=== PATIENT | female | born 1935 ===

== ENCOUNTER 2024-03-18 20:24 | Inpatient (IN) | payer MEDICARE ==
[~2024-03-18] VITALS: Ht 152.4 cm; Wt 50.0 kg
[2024-03-18] MEDS ORDERED: AMITRIPTYLINE H50 M1 PO (20:57)
[2024-03-18] MEDS ORDERED: LASIX 20MG TABL20 MG PO (20:57)
[2024-03-18] MEDS ORDERED: SYNTHROID0.075 MG/T PO (20:58)
[2024-03-18] MEDS ORDERED: XANAX .25M0.25 MG/TA PO (20:58)
[2024-03-18] MEDS ORDERED: LOPRESSOR 550 MG/TAB PO (20:58)
[2024-03-18] MEDS ORDERED: NS 1,000 ML IV SCH (21:00)
[2024-03-18] MEDS ORDERED: Ondansetron 4 MG/2 ML VIAL IV PRN (21:00)
[2024-03-18] MEDS ORDERED: Pantoprazole 40 MG in NS 10 ML IV SCH (21:00)
--- NOTE | 2024-03-18 21:15 | NUR ---
PATIENT ARRIVED TO ROOM 346 VIA EMS STRETCHER, TRANSFERRED FROM [facility]. PRESENTLY DENIES PAIN IN HER ABDOMEN BUT IS REPORTING A SLIGHT HEADACHE AND PAIN IN BOTH SHOULDERS SHE HAS RECENTLY STARTED USING A WALKER AND STATES THISIS WHAT HAS CAUSED HER SHOULDERS TO START HURTING. SHE IS VERY ANXIOUS AND DOES NOT WANT TO ANSWER MANY OF THE INTAKE QUESTIONS STATING THAT THE QUESTIONING IS UPSETTING HER NERVES. SHE IS ALERT AND ORIENTED BUT CONVERSATIONALLY CONFUSED. EDUCATED DISPATCH ASSOCIATE LIGHT USE AND ENSURED CALL LIGHT IS WITHIN REACH. BED IS LOCKED AND IN LOW POSITION WITH BED ALARM ON.
[2024-03-18] MEDS ORDERED: CYMBALTA 20MG20 MG PO (21:36)
[2024-03-18] MEDS ORDERED: VITAMIN D31000 I1 PO (21:37)
[2024-03-18] MEDS ORDERED: BAYER BACK & B1 EACH PO (21:39)
[2024-03-18] MEDS ORDERED: MULTI VITAMINS1 TAB PO (21:40)
[2024-03-18] MEDS ORDERED: DICLOFENAC SOD2.5 ML TOP (21:41)
[2024-03-18] MEDS ORDERED: GLUCOSAMINE & C1 CA2 (21:43)
[2024-03-18] MEDS ORDERED: ANTACID500 M1 (21:44)
[2024-03-18] MEDS ORDERED: B-121000 MCG PO ×2 (21:44→22:06)
[2024-03-18] MEDS ORDERED: NEURONTIN100 MG/CAP PO (22:03)
[2024-03-18] MEDS ORDERED: CELEBREX 1100 MG/CAP PO (22:04)
[2024-03-18] MEDS ORDERED: ALPRAZolam 0.25 MG TAB PO PRN (22:15)
[2024-03-18] MEDS ORDERED: Furosemide 40 MG/4 ML VIAL IV SCH (22:30)
[2024-03-19] VITALS (10 sets, daily range): BP systolic 94–139; BP diastolic 58–82; PULSE 70–91; TEMP 97.7–98.4
[2024-03-19 00:48] LABS: CALCIUM 7.9 mg/dL (8.4-10.2); CREATININE, serum 0.63 mg/dL (0.57-1.11); MAGNESIUM 1.7 mg/dL (1.6-2.6)
[2024-03-19] MEDS ORDERED: Potassium Chloride 100 ML IV SCH (01:00)
[2024-03-19] MEDS ORDERED: *Potassium Replacement Protocol MC SCH (01:00)
[2024-03-19 06:50] LABS: BASO # 0.1 K/mm3 (0.0-0.2); BASO % 0.8 % (0.0-2.0); EOS % 16.1 % (0.0-4.0); GRAN # 2.6 K/mm3 (1.4-6.5); GRAN % 41.3 % (42.2-75.2); HEMOGLOBIN 10.1 g/dl (12.5-16.0); LYMPH % 32.3 % (20.0-51.0); MEAN CELL VOLUME 103 fl (80.0-100.0); MEAN CORPUSCULAR HEMOGLOBIN 36 pg (27-31); MEAN CORPUSCULAR HGB CONC 35 g/dl (33.0-37.0); MEAN PLATELET VOLUME 8.9 fl (7.4-10.4); MONO # 0.6 K/mm3 (0.1-0.6); PLATELET COUNT 340 K/mm3 (130-400); RED BLOOD COUNT 2.79 M/mm3 (4.10-5.30); REDCELL DISTRIBUTION WIDTH-CV 15.7 % (11.5-14.5)
[2024-03-19 06:53] LABS: HEMATOCRIT 28.7 % (37.0-47.0)
[2024-03-19 07:12] LABS: ALBUMIN 1.8 g/dL (3.4-4.8); BILIRUBIN,TOTAL 0.2 mg/dL (0.2-1.2); CALCIUM 7.2 mg/dL (8.4-10.2); CREATININE, serum 0.61 mg/dL (0.57-1.11); POTASSIUM 4.1 mEq/L (3.5-4.5); TOTAL PROTEIN 3.8 g/dl (6.2-8.1)
[2024-03-19] MEDS ORDERED: Dextrose (Glucose) 15 GM (4 x 3.75 GM) Chewable TABLET PACK PO PRN (08:00)
[2024-03-19] MEDS ORDERED: D5 1/2 NS 1,000 ML IV SCH (08:00)
[2024-03-19] MEDS ORDERED: Glucagon 1 MG VIAL IM PRN (08:00)
[2024-03-19] MEDS ORDERED: Dextrose 50% Water 25 GM/50 ML SYRINGE IV PRN (08:00)
[2024-03-19] MEDS ORDERED: Gabapentin 100 MG CAP PO SCH (09:00)
--- NOTE | 2024-03-19 09:32 | NUR ---
SHIFT ASSESSMENT COMPLETE. VSS. PATIENT RESTING IN BED AWAKE W/ DAUGHTER AT BEDSIDE. PATIENT REPORT HEADACHE PAIN MEDS GIVEN ORDERED. ALL PO MEDS ON HOLD DUE TO PATIENT BEING NPO AT THIS TIME AND GENERAL SURGERY EVALUATES. PATIENT HAS NO OTHER NEEDS AT THIS TIME. BED ALARM ON AND CALL LIGHT IN REACH
--- NOTE | 2024-03-19 09:37 | NUR ---
aquacultural worker supervisor met with pt and her daughter, Geeat [phone] to discuss discharge planning. Pt reports to be tired and does not want to answer anymore questions. She agreed to let SW discuss with her daughter. Geeta reports pt lives alone in [place]. She sees Dr. Irma Abrams for PCP needs and obtains medications from [facility] with no difficulties. She states pt is usually independent with ADLS and uses a [facility] for DME. She reports they have private duty come in to assist with bathing and light housekeeping. She reports son, Joe [phone] is DPOA-HC and SW urged him to bring a copy in. SW advised PT/OT will work with pt and make a reccomendation. She verbalized understanding. PT/OT pending Discharge Plan: [facility]
[2024-03-19] MEDS ORDERED: oxyCODONE 5 MG TAB PO PRN (12:00)
[2024-03-19] MEDS ORDERED: Morphine 4 MG/ML VIAL IV PRN (12:00)
[2024-03-19] MEDS ORDERED: Acetaminophen 500 MG TAB PO PRN (12:00)
--- NOTE | 2024-03-19 20:46 | NUR ---
PATIENT RESTING IN BED WITH EYES CLOSED. EASILY ROUSED. DENIES PAIN AT THIS TIME. REMAINS STABLE ON ROOM AIR. CALL LIGHT IS WITHIN REACH. BED IS LOCKED AND IN LOW POSITION.
[2024-03-19] MEDS ORDERED: Amitriptyline 50 MG TAB PO SCH (21:00)
[2024-03-20] VITALS (12 sets, daily range): BP systolic 103–139; BP diastolic 65–91; PULSE 54–66; TEMP 96.4–98.1
--- NOTE | 2024-03-20 04:10 | NUR ---
PCT REPORTED PATIENT'S BLOOD GLUCOSE 58. 12.5 MG IV DEXTROSE GIVEN.
[2024-03-20 07:03] LABS: BASO # 0.1 K/mm3 (0.0-0.2); BASO % 0.9 % (0.0-2.0); EOS # 1.3 K/mm3 (0.0-0.7); EOS % 19.5 % (0.0-4.0); GRAN # 2.9 K/mm3 (1.4-6.5); GRAN % 42.5 % (42.2-75.2); HEMOGLOBIN 10.8 g/dl (12.5-16.0); LYMPH # 1.9 K/mm3 (1.2-3.4); MEAN CELL VOLUME 106 fl (80.0-100.0); MEAN CORPUSCULAR HEMOGLOBIN 36 pg (27-31); MEAN CORPUSCULAR HGB CONC 34 g/dl (33.0-37.0); MEAN PLATELET VOLUME 8.8 fl (7.4-10.4); MONO # 0.6 K/mm3 (0.1-0.6); MONO % 8.7 % (1.7-9.3); PLATELET COUNT 349 K/mm3 (130-400); RED BLOOD COUNT 2.97 M/mm3 (4.10-5.30); REDCELL DISTRIBUTION WIDTH-CV 16.4 % (11.5-14.5)
[2024-03-20 07:06] LABS: HEMATOCRIT 31.5 % (37.0-47.0)
[2024-03-20 07:27] LABS: ALBUMIN 1.7 g/dL (3.4-4.8); BILIRUBIN,TOTAL 0.2 mg/dL (0.2-1.2); CALCIUM 6.9 mg/dL (8.4-10.2); CREATININE, serum 0.66 mg/dL (0.57-1.11); POTASSIUM 3.3 mEq/L (3.5-4.5); TOTAL PROTEIN 3.9 g/dl (6.2-8.1)
[2024-03-20] MEDS ORDERED: Potassium Chloride 100 ML IV SCH ×2 (08:00→19:30)
--- NOTE | 2024-03-20 09:29 | NUR ---
AKHIL notes PT/OT reccomend SNF vs Home Health. AKHIL provided Medicare.gov lists of both options to pt and daughter to review as there is an unknown determination of medical process at this time. Daughter reports she is uneasy about pt returning home with their minimal private duty services. She reports that pt has only been able to return home this long due to the son's living close by as pat's and being in/out of the home. Daughter reports interest in [facility] or [facility]. AKHIL provided information on these and IPR for them to discuss. Daughter is unsure if pt can tolerate IPR or SB levels. She states pt will be difficult to convince to go to a correction. AKHIL notes DPOA-HC and living will was placed in chart. Discharge Plan: SNF vs HH, pending medical plan
--- NOTE | 2024-03-20 09:45 | NUR ---
Pt. laying in bed with daughter at bedside. Pt. is Alert and oriented but forgetful. IV fluids infusing to rt. forearm site. Pt. denies pain or other needs, call light within reach.
[2024-03-20] MEDS ORDERED: Ondansetron 4 MG/2 ML VIAL IV PRN (10:15)
[2024-03-20] MEDS ORDERED: LR 1,000 ML IV SCH (11:30)
[2024-03-20] MEDS ORDERED: ALPRAZolam 0.25 MG TAB PO PRN (11:30)
[2024-03-20] MEDS ORDERED: Magnesium Sulfate 2 GM/50 ML IV SOLN IV SCH (12:00)
--- NOTE | 2024-03-20 20:49 | NUR ---
PATIENT RESTING IN BED WATCHING TV. DENIES PAIN BUT STATES SHE FEELS VERY WEAK. CALL LIGHT WITHIN REACH. BED IS LOCKED AND IN LOW POSITION WITH BED ALARM ON.
[2024-03-20] MEDS ORDERED: Amitriptyline 50 MG TAB PO SCH (21:00)
[2024-03-21] VITALS (20 sets, daily range): BP systolic 108–143; BP diastolic 76–95; PULSE 66–87; TEMP 97.4–98.2
--- NOTE | 2024-03-21 04:40 | NUR ---
PATIENT'S BLOOD GLUCOSE WAS 70. CALLED HOSPITALIST OUR HYPOGLYCEMIC PROTOCOL DOES NOT START UNTIL BELOW 70. HOSPITALIST ADVISED TO GIVE PATIENT FULL 25 MG IV DEXTROSE VS THE PROTOCOL ORDER 12.5 MG
[2024-03-21 06:36] LABS: BASO # 0.1 K/mm3 (0.0-0.2); BASO % 0.8 % (0.0-2.0); EOS # 1.7 K/mm3 (0.0-0.7); EOS % 19.7 % (0.0-4.0); GRAN # 4.5 K/mm3 (1.4-6.5); GRAN % 52.6 % (42.2-75.2); HEMOGLOBIN 11.9 g/dl (12.5-16.0); LYMPH # 1.6 K/mm3 (1.2-3.4); LYMPH % 18.3 % (20.0-51.0); MEAN CELL VOLUME 109 fl (80.0-100.0); MEAN CORPUSCULAR HEMOGLOBIN 36 pg (27-31); MEAN CORPUSCULAR HGB CONC 34 g/dl (33.0-37.0); MONO # 0.7 K/mm3 (0.1-0.6); MONO % 8.3 % (1.7-9.3); PLATELET COUNT 397 K/mm3 (130-400); RED BLOOD COUNT 3.27 M/mm3 (4.10-5.30)
[2024-03-21 06:39] LABS: HEMATOCRIT 35.5 % (37.0-47.0)
[2024-03-21 07:04] LABS: ALBUMIN 1.8 g/dL (3.4-4.8); BILIRUBIN,TOTAL 0.3 mg/dL (0.2-1.2); CALCIUM 6.9 mg/dL (8.4-10.2); CREATININE, serum 0.6 mg/dL (0.57-1.11); TOTAL PROTEIN 4.2 g/dl (6.2-8.1)
--- NOTE | 2024-03-21 09:00 | NUR ---
SHIFT ASSESSMENT COMPLETE. VSS. PATIENT UP TO RECLINER, NPO TILL AFTER EGD TODAY. LFT FOREARM IV INFUSING D5/NS @50ML/HR. PATIENT REPORTS PAIN TO THE LEFT HAND, PAIN MEDS GIVEN ORDERED AND REWRAPPED ROCIO WRAP AROUND.PATIENT ALSO REPORTING A SORE THROAT, REPORTED TO HOSPITALIST. PATIENT HAS NO OTHER REQUEST AT THIS TIME. CHAIR ALARM ON AND CALL LIGHT IN REACH. PATIENTS SON AT BEDSIDE.
--- NOTE | 2024-03-21 11:30 | NUR ---
PATIET GLUCOSE 62 , HYPOGLYCEMIA PROTOCAL ADMINISTERED. RECHECK IN GLUCOSE IN 15MIN
--- NOTE | 2024-03-21 11:49 | NUR ---
AKHIL spoke with son in room to discuss discharge planning as per Dr. Wyatt, if EGD determines anything she could discharge within the next day or so. Pt was resting then RN arrived to assist her. SW spoke with son and looked at Medicare.gov list of HH vs SNF. He reports agreeing that SNF would be more suitable. He was agreeable to the options his sister, Geeta provided: [facility] and [facility]. He reports concerns with pt being agreeable. He later approached SW and expressed concerns again if she is of sound mind and if she chooses to go home. SW encouraged him to talk with their family and discuss boundaries and abilities with her about what they can realistically assist with. He reports he will do this and await for his brother to arrive to help discuss. AKHIL advised she is around and available if they need support providing information. AKHIL informed him that if pt goes home and fails, she could go to a prison within 30 days as she met Medicare inpatient criteria. Son verbalized understanding. AKHIL spoke with Melisa at [facility] who reports their DON is reviewing. AKHIL spoke with Gisele at [facility] who will review it this afternoon. Discharge Plan: SNF/SB vs HH
[2024-03-21] MEDS ORDERED: Lidocaine PF 2% (20 MG/ML) 5 ML VIAL ONE (13:01)
[2024-03-21] MEDS ORDERED: fentaNYL 50 MCG/ML 2 ML VIAL ONE (13:02)
--- NOTE | 2024-03-21 14:12 | NUR ---
PATIENT ARRIVED BACK TO FLOOR @ 1350. VSS. PATIENT AWAKE IN BED W/ FAMILY AT BEDSIDE. PATIENT HAS NO NEEDS AT THIS TIME. BED ALARM ON AND CALL LIGHT IN REACH
--- NOTE | 2024-03-21 14:48 | NUR ---
sort line worker spoke with Gisele at [facility] who reports they will continue to follow, but might determine she is more appropriate for a usp.
--- NOTE | 2024-03-21 17:22 | NUR ---
PATIENT GLUCOSE 61, GAVE PATIENT APPLE JUICE AND ADMINISTER HYPOGLYCEMIC PROTOCAL. RETAKE GLUCOSE IN 15 MIN.
--- NOTE | 2024-03-21 17:30 | NUR ---
RECHECK OF GLUCOSE 96. NO ACTION NEEDED. PATIENT NPO STATUS
--- NOTE | 2024-03-21 18:08 | NUR ---
RECHECK OF GLUCOSE 85. NO ACTION NEEDED
--- NOTE | 2024-03-21 18:27 | NUR ---
ARISA CATHETER REMOVED 9CC IN BALLOON AND 50ML OF URINE OUT.PATIENT TOLERATED WELL. EXPLAINED TO PATIENT MULTIPLE TIMES THAT SHE WILL NEED TO CALL IF SHE NEEDS TO VOID OR HAVE A BM. PATIENT EXPRESSED UNDERSTANDING BUT FEEL VERY ANXIOUS ABOUT GETTING UP OUT OF BED DUE TO WEAKNESS AND FEAR OF FALLING. FAMILY AT BEDSIDE AND THEY STATED THEY WILL TALK WITH PATIENT WELL.
--- NOTE | 2024-03-21 19:00 | NUR ---
RECEIVED CHANGE OF SHIFT REPORT FROM DAY SHIFT NURSE.
[2024-03-22] VITALS (12 sets, daily range): BP systolic 111–157; BP diastolic 81–93; PULSE 61–89; TEMP 97.2–97.9
--- NOTE | 2024-03-22 00:02 | NUR ---
Notified by PCT that bedside glucose 68 post Arroyo Juice. 12.5 grams D50 given IV by this nurse. Instructed PCT to recheck bedside glucose in 15 minutes. Report given to primary nurse RICHARD Asencio.
--- NOTE | 2024-03-22 05:45 | NUR ---
INFORMED ONCALL PROVIDER THAT PATIENT HAS NOT VOIDED FOR THIS SHIFT WITH POOR ORAL FLUID INTAKE AND CURRENT IVF RATE AT 50 ML/HR AND CURRENT VS/MEDITECH WITH ORDERS GIVEN TO BLADDER SCAN AND ST CATH IF >500ML X1.
[2024-03-22 06:33] LABS: BASO # 0.1 K/mm3 (0.0-0.2); BASO % 0.8 % (0.0-2.0); EOS # 1.5 K/mm3 (0.0-0.7); EOS % 16.3 % (0.0-4.0); GRAN # 5.2 K/mm3 (1.4-6.5); GRAN % 57.8 % (42.2-75.2); HEMOGLOBIN 12.2 g/dl (12.5-16.0); LYMPH # 1.7 K/mm3 (1.2-3.4); LYMPH % 18.3 % (20.0-51.0); MEAN CELL VOLUME 108 fl (80.0-100.0); MEAN CORPUSCULAR HEMOGLOBIN 37 pg (27-31); MEAN CORPUSCULAR HGB CONC 34 g/dl (33.0-37.0); MONO # 0.6 K/mm3 (0.1-0.6); MONO % 6.6 % (1.7-9.3); PLATELET COUNT 413 K/mm3 (130-400); RED BLOOD COUNT 3.33 M/mm3 (4.10-5.30); REDCELL DISTRIBUTION WIDTH-CV 16.5 % (11.5-14.5)
[2024-03-22 06:36] LABS: HEMATOCRIT 36.1 % (37.0-47.0)
[2024-03-22 06:53] LABS: ALBUMIN 1.9 g/dL (3.4-4.8); BILIRUBIN,TOTAL 0.3 mg/dL (0.2-1.2); CALCIUM 6.9 mg/dL (8.4-10.2); CREATININE, serum 0.56 mg/dL (0.57-1.11); MAGNESIUM 2.1 mg/dL (1.6-2.6); TOTAL PROTEIN 4.5 g/dl (6.2-8.1)
--- NOTE | 2024-03-22 07:29 | NUR ---
RECEIVED CHANGE OF SHIFT REPORT FROM DAY SHIFT NURSEFRANCISCO JAVIER.
--- NOTE | 2024-03-22 08:00 | NUR ---
PATIENT HAD A GLUCOSE OF 67 THIS AM PATIENT GIVEN ORANGE JUICE AND TWO OF THE FOUR DEXTROS CHEWS EQUALING 7.5MG. RECHECK OF GLUCOSE 89
--- NOTE | 2024-03-22 11:14 | NUR ---
SHIFT ASSESSMENT COMPLETE. VSS. PATIENT UP TO RECLINER TRYING TO EAT SOME APPLE SAUCE, FAMILY AT BEDSIDE. PATIENT STILL VERY WEK THIS AM, RUFUSED BREAKFAST THIS AM BUT DID FINALLY AGREE TO EAT SOME APPLE SAUCE, HAVE SOME ORANGE JUICE AND COFFEE AFTER DISCUSSION ABOUT NOT BEING ABLE TO LEAVE AND GO HOME ALONE IF SHE DOES NOT EAT TO HELP GET STRONGER. PATIENT HAS NO OTHER NEEDS AT THIS TIME. CHAIR ALARM ON AND CALL LIGHT IN REACH
--- NOTE | 2024-03-22 13:39 | NUR ---
perinatal social worker spoke with [facility] who reports they can visit pt tomorrow at 10am. AKHIL spoke with Gisele at [facility] who is still reviewing, but reports concerns if pt will continue to be agreeable to therapy and if she will need LTC placement. This morning, AKHIL spoke with daughterGeeta reporting that they have not heard anything and are requesting an update. AKHIL advised her brother was supposed to discuss with the family and talk with pt about rehab. She was informed [facility] will visit tomorrow at 10am and [facility] was still reviewing. AKHIL advised that pt is nearing discharge and needs options on preferences in the event they cannot accept. AKHIL advised pt is reccomended for rehab at a SNF/[facility]. Daughter reports interest in [facility]. AKHIL advised she will send this. AKHIL attended rounding with Dr. Wyatt and informed her of pt's reservations with SNF. Dr. Wyatt assisted in this conversation, her weakness, and reccomendations for SNF before going home. Pt's [id number], Maria Fernanda was present in room and called pt's son, Umair then Geeta. AKHIL and both discussed their reccomendations and next steps. AKHIL referenced previously provided Medicare.gov list of SNF's. Pt continues to be resistant and wants to go home, yet Maria Fernanda reports pt has needed assistance getting up each time and is anxious. Pt believes her family that are nearby pat's will each check on her. SW challenged this and reports the family is not often there and works. Pt states "this is a lot to think about." AKHIL advised a place needs to be secured prior to discharge tomorrow morning. Pt continues to combat this and states she is not sure if she will have an answer. Maria Fernanda states pt will talk with her children. AKHIL spoke with [facility] who reports they were reviewing. AKHIL later called to inform her pt DOES have a secondary insurance, [employer]. Discharge Plan: SNF vs home with HH
--- NOTE | 2024-03-22 13:41 | NUR ---
SW sent clinical updates to [facility], [facility] and [facility]. Discharge plan: SNF vs SB
--- NOTE | 2024-03-22 13:59 | NUR ---
AKHIL called daughter, Geeta and provided an update on [facility] and [facility] being interested, and [facility] visiting tomorrow. She reports that their first choice would be [facility], then [facility] to limit transfers for pt. AKHIL urged her to have the family talk with pt because earlier this morning, pt did not appear agreeable. Geeta reports that her mother will come around and be agreeable. She advised they further discuss as a family unit.
--- NOTE | 2024-03-22 19:00 | NUR ---
RECEIVED CHANGE OF SHIFT REPORT FROM DAY SHIFT NURSE.
--- NOTE | 2024-03-22 20:03 | NUR ---
CONTACTED ONCALL PROVIDER OF IMPROVED TRENDING OF FSBS, ORDERS TO DECREASE FREQUENCY FROM FQ2H TO Q4H FSBS. NO OTHER NEEDS REPORTED AT THIS TIME.
[2024-03-23] VITALS (7 sets, daily range): BP systolic 125–141; BP diastolic 66–90; PULSE 80–87; TEMP 97.8–98.6
--- NOTE | 2024-03-23 06:00 | NUR ---
PATIENT HAD SOME CONFUSION FOR FIRST HALF OF SHIFT TILL AFTER MIDNIGHT. PATIENT DISORIENTED TO PLACE AND EVENT, SPEECH CLEAR, ABLE TO FOLLOW COMMANDS WITH FREQUENT CUES FROM STAFF WITH ACTIVITIES DURING THE CONFUSION. PATIENT ALSO HAD PROBLEMS WITH FSBS AT 58, PATIENT TREATED WITH 2 GLUCO CHEW TABS THAT PATIENT TOOK WITH NO PROBLEMS AND DRANK LOTS OF WATER. FOLLOW UP FSBS CHECK WAS AT 80. PATIENT DRANK WHEN ENCOURAGED, REFUSED TO DRINK ENSURE CLEAR THAT WAS ALREADY OPENED ON HER OVERBED TRAY. PATIENT REFUSED TO WEAR SCDS ALL SHIFT. PATIENT BECAME ORIENTED TO PLACE AND EVENT AROUND TOWARD 4AM AND WAS APPROPRIATE WITH CONVERSATION WITH NURSING STAFF. FSBS AT 79 AROUND 0400.
[2024-03-23 06:54] LABS: BASO # 0.1 K/mm3 (0.0-0.2); BASO % 1.1 % (0.0-2.0); EOS % 11.4 % (0.0-4.0); GRAN # 5.6 K/mm3 (1.4-6.5); GRAN % 61.6 % (42.2-75.2); HEMOGLOBIN 12.3 g/dl (12.5-16.0); LYMPH # 1.6 K/mm3 (1.2-3.4); LYMPH % 17.7 % (20.0-51.0); MEAN CELL VOLUME 106 fl (80.0-100.0); MEAN CORPUSCULAR HEMOGLOBIN 36 pg (27-31); MEAN CORPUSCULAR HGB CONC 34 g/dl (33.0-37.0); MEAN PLATELET VOLUME 9.4 fl (7.4-10.4); MONO # 0.7 K/mm3 (0.1-0.6); MONO % 7.9 % (1.7-9.3); PLATELET COUNT 447 K/mm3 (130-400); RED BLOOD COUNT 3.42 M/mm3 (4.10-5.30); REDCELL DISTRIBUTION WIDTH-CV 15.7 % (11.5-14.5)
[2024-03-23 06:57] LABS: HEMATOCRIT 36.1 % (37.0-47.0)
[2024-03-23 07:25] LABS: BILIRUBIN,TOTAL 0.3 mg/dL (0.2-1.2); CALCIUM 7.3 mg/dL (8.4-10.2); CREATININE, serum 0.54 mg/dL (0.57-1.11); MAGNESIUM 2.2 mg/dL (1.6-2.6); POTASSIUM 4.9 mEq/L (3.5-4.5); TOTAL PROTEIN 4.9 g/dl (6.2-8.1)
--- NOTE | 2024-03-23 07:30 | NUR ---
SHIFT ASSESSMENT COMPLETED. VSS. PATIENT RESTING IN BED. ALL MORNING MEDS GIVEN ORDERED. PATIENT HAD A ROUGH NIGHT, PER PATIENT HAD LOTS OF CRAZY DREAMS AND CAUSED HER TO BE CONFUSED THROUGHOUT THE NIGHT IN TO EARLY THIS AM. PATIENT ALSO EXPRESSED FEELING VERY NERVOUS AND ANXIOUS ABOUT HER HEALTH AND THE FUTURE. THIS NURSE CALMED PATIENT AND GAVE PRN ANITANXITY MED ORDERED. BREAKFAST ORDERED AND PATIENTS FAMILY ARE ARRIVING SOON. PATIENT HAS NO OTHER NEEDS AT THIS TIME. BED ALARM ON AND CALL LIGHT IN REACH.
--- NOTE | 2024-03-23 07:39 | NUR ---
LAB CALLED WITH CRITICAL RESULT FOR GLUCOSE OF 67. HYPOGYLCEMIC PROTOCAL INITIATED. HOSPITALIST CONTCATED.
[2024-03-23] MEDS ORDERED: TYLENOL 500MG500 MG PO (14:40)
[2024-03-23] MEDS ORDERED: PROTONIX 40MG T40 MG PO (14:41)
--- NOTE | 2024-03-23 15:02 | NUR ---
hot worker attended clinical rounding and was informed pt is cleared to discharge. AKHIL notes [facility] arrived at 10am to complete their visit. AKHIL spoke with Gisele at [facility] who accepts. AKHIL was later informed [facility] did accept pt. AKHIL provided both options to daughter, Geeta and son, Umair. They chose [facility] for pt. They informed SW that Umair will transport pt over there. AKHIL completed IM from Medicare with son, Umair. He signed and verbalized understanding. Copy provided and original in chart. AKHIL faxed discharge orders to [facility] and spoke with Melisa to advise they will discharge shortly with son transporting. They would like pt to arrive as soon as possible. AKHIL informed family of this. AKHIL collaborated with Clerk Lore Cochran and RICHARD [facility] regarding discharge. Discharge Plan: son transport to Health system
== END 2024-03-23 15:55 | DRG 381 ==
LOC: SURG 20:24
PROVIDERS: Hospitalist; Nurse Practitioner Family; Surgery; ADMIT Internal Medicine
PROC: 0DB98ZX Excision of Duodenum, Via Natural or Artificial Opening Endoscopic, Diagnostic (ICD-10-PCS; principal; 2024-03-21 13:00)
DX: K25.1 Acute gastric ulcer with perforation (principal); E44.0 Moderate protein-calorie malnutrition; E87.20 Acidosis, unspecified; R18.8 Other ascites; J90 Pleural effusion, not elsewhere classified; Z68.1 Body mass index [BMI] 19.9 or less, adult; Z66 Do not resuscitate; M19.90 Unspecified osteoarthritis, unspecified site; M81.0 Age-related osteoporosis without current pathological fracture; I10 Essential (primary) hypertension; K44.9 Diaphragmatic hernia without obstruction or gangrene; E78.5 Hyperlipidemia, unspecified; D64.9 Anemia, unspecified; E83.51 Hypocalcemia; E87.6 Hypokalemia; K26.1 Acute duodenal ulcer with perforation; F41.9 Anxiety disorder, unspecified; E03.9 Hypothyroidism, unspecified; K58.9 Irritable bowel syndrome, unspecified; R13.10 Dysphagia, unspecified; Z96.652 Presence of left artificial knee joint; M51.36 Other intervertebral disc degeneration, lumbar region; J02.9 Acute pharyngitis, unspecified; Z20.822 Contact with and (suspected) exposure to COVID-19; R53.81 Other malaise; G62.9 Polyneuropathy, unspecified; E16.2 Hypoglycemia, unspecified; E83.42 Hypomagnesemia; K66.8 Other specified disorders of peritoneum; Z90.89 Acquired absence of other organs; Z79.82 Long term (current) use of aspirin; Z79.899 Other long term (current) drug therapy; Z79.890 Hormone replacement therapy; Z88.2 Allergy status to sulfonamides; Z79.1 Long term (current) use of non-steroidal anti-inflammatories (NSAID)
CPT/HCPCS: J0612; J1940; J2270; J2405; J2470; J2543; J2704; J3010; J3475; J3480; J7030